=== PATIENT | male | born 1975 | race Caucasian/White ===

== ENCOUNTER 2021-01-31 10:08 | Outpatient (CLI) | payer BC, SELFPAY ==
--- NOTE | ~2021-01-31 | XR_ITS ---
EXAMINATION: XR hand LT min 3V EXAM DATE: 01/31/2021 10:28 INDICATION: M79.642 - Pain in left hand at the 5th digit after fall, initial encounter. TECHNIQUE: Left hand frontal, lateral and oblique projections obtained and reviewed. There is no rocio or study for comparison. FINDINGS: Left metacarpal bones are unremarkable. There are no acute fractures or dislocations ident ified. There is no subcutaneous gas. The soft tissue is unremarkable. There are no radiopaque for eign bodies. IMPRESSION: 1. Unremarkable XR hand LT min 3V exam. Reviewed, dictated and finalized at location A.
== END 2021-01-31 10:09 | disposition home or self-care (01) ==
PROVIDERS: PCP Physician Assistant; Visit Provider Physician Assistant
DX: M79.642 Pain in left hand (principal)
CPT/HCPCS: 73130

== ENCOUNTER → 2022-10-10 08:12 | Outpatient (CLI) | payer BC, SELFPAY ==
--- NOTE | ~2022-10-10 | MR_ITS ---
EXAMINATION: MR shoulder LT wo con DATE: 10/10/2022 08:51 INDICATION: Left shoulder pain TECHNIQUE: Magnetic resonance imaging (MRI) of the left shoulder was performed without intravenous co ntrast. Sequences included axial PD-weighted FS FSE, coronal oblique PD-weighted FS FSE, coronal obli que T2-weighted FS FSE, sagittal PD-weighted FS FSE, and sagittal T1-weighted SE. COMPARISON: None. FINDINGS: Coracoacromial arch: The acromion undersurface is minimally curved in morphology (type I-II). The coracoacromial ligament is normal. Mild acromioclavicular osteoarthritis. Rotator cuff: The supraspinatus, infraspinatus and teres minor tendons are normal. The subscapularis tendon is norm al. Normal rotator cuff muscle bulk and signal. Biceps tendon, glenoid labrum and glenohumeral cartilage: Long head of the biceps tendon is normal. There is amorphous increased signal at the posterior superi or glenoid labrum consistent with labral degeneration. Additional small tear at the anteroinferior gl enoid labrum. Mild partial-thickness cartilage loss with smooth chondral surface along the cephalad h vianca of the glenoid. Fluid: Small amount of fluid in the long head biceps tendon sheath which is disproportionate to the physiolo gic amount fluid in the glenohumeral joint space consistent with mild bicipital tenosynovitis. No loo se osteochondral bodies. No abnormal increased fluid in the subacromial/subdeltoid bursa to suggest b ursitis. Bones: Normal marrow signal with no edema, fracture or abnormal marrow replacing process. IMPRESSION: 1. Small tear at the anteroinferior labrum and more prominent degenerative tearing of the posterosupe rior glenoid labrum. 2. Mild bicipital tenosynovitis. 3. Mild glenohumeral and acromioclavicular osteoarthritis. Reviewed, dictated and finalized at location B. IMPRESSION: 1. Small tear at the anteroinferior labrum and more prominent degenerative tear ing of the posterosuperior glenoid labrum. 2. Mild bicipital tenosynovitis. 3. Mild glenohumeral and acromioclavicular osteoarthritis.
== END ==
PROVIDERS: PCP Internal Medicine; Visit Provider Physician Assistant Surgical
DX: M19.012 Primary osteoarthritis, left shoulder (principal); M75.22 Bicipital tendinitis, left shoulder
CPT/HCPCS: 73221